=== PATIENT | female | born 1975 | race Caucasian/White ===

== ENCOUNTER 2020-01-08 22:31 | Inpatient (IN) ==
[2020-01-08] MEDS ORDERED: Aspirin 81 MG TAB.CHEW PO ONE (22:38)
[2020-01-08] MEDS ORDERED: Nitroglycerin 0.4 MG TAB.SUBL SL PRN (22:38)
[2020-01-08] MEDS ORDERED: Ondansetron 4 MG/2 ML VIAL IVP ONE (22:47)
[2020-01-08] MEDS ORDERED: GI Cocktail 40 ML EACH PO ONE (22:47)
[2020-01-08 22:55] LABS: Basophils % 0.2 %; Eosinophils # 0.3 K/mcL (0.0-0.6); Eosinophils % 1.5 %; Hematocrit 40.9 % (35.3-44.9); Hemoglobin 13.7 g/dL (11.5-15.4); Immature Granulocytes % 0.3 % (0-4); Lymphocytes # 2.1 K/mcL (0.6-4.6); Lymphocytes % 12.2 %; Mean Corpuscular HGB Conc 33.5 g/dL (31.6-35.5); Mean Corpuscular Volume 92.5 fL (83.0-100.0); Mean Platelet Volume 10.2 fL (9.4-12.4); Monocytes % 5.8 %; Neutrophils # 13.9 K/mcL (1.6-8.9); Platelet Count 271 K/mcL (140-400); Red Blood Count 4.42 M/mcL (3.82-4.97); Red Cell Distribution Width 12.9 % (11.5-14.5); White Blood Count 17.3 K/mcL (4.3-11.1)
[2020-01-08 23:04] LABS: Prothrombin Time 11.2 Seconds (9.4-12.1)
[2020-01-08 23:07] LABS: Activated Partial Thrombo Time 38.9 Seconds (26.0-36.0)
[2020-01-08] MEDS ORDERED: 0.9 % Sodium Chloride 1,000 ML IVC ONE (23:18)
[2020-01-08] MEDS ORDERED: 0.9 % Sodium Chloride 1,000 ML ONE (23:19)
[2020-01-08 23:22] LABS: BUN/Creatinine Ratio 42 (6-26); Blood Urea Nitrogen 22 mg/dL (6-20); Calcium 8.1 mg/dL (8.6-10.3); Carbon Dioxide 21 mEq/L (23-29); Chloride 111 mEq/L (98-107); Glucose 91 mg/dL (70-105); Lipase 10 Units/L (11-82); Osmolality,Calculated 293 (280-300); Potassium 3.6 mEq/L (3.5-5.1); Sodium 140 mEq/L (136-145); Troponin I < 0.03 ng/mL (< 0.04); eGFR For African Americans > 60 (> 60); eGFR For Non-African Americans > 60 (> 60)
[2020-01-09] MEDS ORDERED: Tetracaine/Benzocaine/Butamben 1 SPRAY AEROSOL MM ONE (01:13)
[2020-01-09] MEDS ORDERED: Naloxone 0.4 MG/ML INJ IVP PRN (02:39)
[2020-01-09] MEDS ORDERED: 0.9 % Sodium Chloride 1,000 ML IVC SCH (02:45)
[2020-01-09 05:42] LABS: Hematocrit 40.9 % (35.3-44.9); Hemoglobin 13.3 g/dL (11.5-15.4); Mean Corpuscular HGB Conc 32.5 g/dL (31.6-35.5); Mean Corpuscular Hemoglobin 30.1 pg (28.0-33.3); Mean Corpuscular Volume 92.5 fL (83.0-100.0); Mean Platelet Volume 10.5 fL (9.4-12.4); Platelet Count 267 K/mcL (140-400); Red Blood Count 4.42 M/mcL (3.82-4.97); Red Cell Distribution Width 13.2 % (11.5-14.5); White Blood Count 12.3 K/mcL (4.3-11.1)
[2020-01-09 06:04] LABS: Alanine Aminotransferase 13 Units/L (7-52); Albumin 3.9 g/dL (3.5-5.7); Albumin/Globulin Ratio 1.6 (1.1-2.2); Alkaline Phosphatase 69 Units/L (34-104); Aspartate Amino Transferase 15 Units/L (13-39); BUN/Creatinine Ratio 37 (6-26); Bilirubin,Total 0.4 mg/dL (0.3-1.0); Blood Urea Nitrogen 20 mg/dL (6-20); Calcium 8.7 mg/dL (8.6-10.3); Carbon Dioxide 22 mEq/L (23-29); Chloride 110 mEq/L (98-107); Globulin 2.4 g/dL (2.4-3.5); Glucose 95 mg/dL (70-105); Magnesium 2.1 mg/dL (1.6-2.6); Osmolality,Calculated 288 (280-300); Phosphorous 2.7 mg/dL (2.7-4.5); Sodium 138 mEq/L (136-145); Total Protein 6.3 g/dL (6.4-8.9); eGFR For African Americans > 60 (> 60); eGFR For Non-African Americans > 60 (> 60)
[2020-01-09] MEDS ORDERED: Chloraseptic Spray 177 ML BOTTLE MM PRN (07:10)
[2020-01-09] MEDS ORDERED: Ondansetron 4 MG/2 ML VIAL IVP PRN (07:14)
[2020-01-09] MEDS ORDERED: Lidocaine Jelly 11 ml Syringe TP ONE (08:40)
[2020-01-09] MEDS ORDERED: *HR* LORazepam 2 MG/ML VIAL IVP ONE (09:39)
[2020-01-09] MEDS: *HR* Heparin 5,000 UNIT/ML VIAL SQ SCH (18:16)
[2020-01-09] MEDS: 0.9 % Sodium Chloride 1,000 ML IVC SCH (23:30)
[2020-01-10 05:12] LABS: Basophils % 0.4 %; Eosinophils # 0.3 K/mcL (0.0-0.6); Eosinophils % 2.7 %; Hematocrit 40.4 % (35.3-44.9); Hemoglobin 12.9 g/dL (11.5-15.4); Immature Granulocytes % 0.4 % (0-4); Lymphocytes # 2.2 K/mcL (0.6-4.6); Lymphocytes % 23.1 %; Mean Corpuscular HGB Conc 31.9 g/dL (31.6-35.5); Mean Corpuscular Hemoglobin 30.1 pg (28.0-33.3); Mean Corpuscular Volume 94.4 fL (83.0-100.0); Mean Platelet Volume 10.1 fL (9.4-12.4); Monocytes # 0.8 K/mcL (0.0-1.3); Monocytes % 7.9 %; Neutrophils # 6.3 K/mcL (1.6-8.9); Platelet Count 264 K/mcL (140-400); Red Blood Count 4.28 M/mcL (3.82-4.97); Red Cell Distribution Width 13.2 % (11.5-14.5); Segmented Neutrophils % 65.5 %; White Blood Count 9.7 K/mcL (4.3-11.1)
[2020-01-10] MEDS: *HR* Heparin 5,000 UNIT/ML VIAL SQ SCH (05:14)
[2020-01-10 05:34] LABS: BUN/Creatinine Ratio 32 (6-26); Blood Urea Nitrogen 20 mg/dL (6-20); Calcium 8.6 mg/dL (8.6-10.3); Carbon Dioxide 26 mEq/L (23-29); Chloride 109 mEq/L (98-107); Glucose 98 mg/dL (70-105); Magnesium 2.2 mg/dL (1.6-2.6); Osmolality,Calculated 295 (280-300); Potassium 3.3 mEq/L (3.5-5.1); Sodium 141 mEq/L (136-145); eGFR For African Americans > 60 (> 60); eGFR For Non-African Americans > 60 (> 60)
[2020-01-10] MEDS: 0.9 % Sodium Chloride 1,000 ML IVC SCH (07:27)
[2020-01-10 14:31] VITALS: BP 100/53
== END 2020-01-10 17:28 | disposition home or self-care (01) | DRG 247 ==
LOC: EMEROOARM 22:31 → CDU 22:31 → 3ANU 01-09 17:34
PROVIDERS: ADMIT Family Medicine; ATTEND Family Medicine